=== PATIENT | female | born 1995 | race Caucasian/White ===

== ENCOUNTER 2019-01-05 21:15 | Emergency (ER) | payer OTHER ==
[~2019-01-05] VITALS: Ht 160 cm; Wt 75.7 kg
[2019-01-05 21:19] VITALS: BP 132/86
--- NOTE | 2019-01-05 21:28 | NUR ---
PT TAKEN TO BED 5
--- NOTE | 2019-01-05 21:30 | NUR ---
Dr. Beal examining patient.
[2019-01-05] MEDS ORDERED: EPINEPHrine 1:1000 - 1 MG/ML AMP SUBQ ONE (21:35)
--- NOTE | 2019-01-05 21:35 | NUR ---
pt presents w/c/o wasp/bee sting to left hand earlier today. +redness, +Swelling noted to l hand. pt states last time she had a sting she had "a really bad reaction" so thats why she came in tonight. pt aaox4, gcs 15. speaking in full sentences. rr even/unlabored. lungs clear bilat. pt took benadryl at 2100 tonight.
[2019-01-05 21:44] VITALS: BP 118/62
--- NOTE | 2019-01-05 21:45 | NUR ---
pt in bed smiling on cell phone, rr even/unlabored. tolerating epi injection well
--- NOTE | 2019-01-05 22:07 | NUR ---
Patient discharged with v/s stable. Written and verbal after care instructions given and explained. Patient verbalized understanding. Ambulatory with steady gait. All questions addressed prior to discharge. Advised to follow up with PMD.
== END 2019-01-05 22:07 | disposition home or self-care (01) ==
LOC: MED 21:15
DX: T63.441A Toxic effect of venom of bees, accidental (unintentional), initial encounter (principal); Y92.89 Other specified places as the place of occurrence of the external cause
CPT/HCPCS: 96372; 99283; J0171